=== PATIENT | female | born 1935 | race Caucasian/White ===

== ENCOUNTER 2016-05-01 10:37 | Inpatient (IN) | payer OTHER, MEDICARE ==
[~2016-05-01] VITALS: Ht 162.6 cm; Wt 68.9 kg
[2016-05-01] MEDS ORDERED: COUMADIN5 M2 PO (11:57)
[2016-05-01] MEDS ORDERED: ASPIRIN81 M4 PO (11:57)
--- NOTE | 2016-05-01 11:58 | ED CARDIAC/CP/PALPITATIONS ---
History of Present Illness General Chief Complaint: Lower Extremity Problems Stated Complaint: "MY LEGS ARE ALL SWOLLEN" Source: patient, family, old records Exam Limitations: no limitations Vital Signs & Intake/Output Vital Signs & Intake/Output Vital Signs Date Time Temp Pulse Resp B/P Pulse O2 O2 Flow FiO2 Ox Delivery Rate 05/01 1334 96.5 82 18 160/83 93 Room Air 05/01 1300 96.5 82 18 160/83 05/01 1256 96.9 103 20 162/90 05/01 1125 96.9 103 20 162/90 95 Room Air Room Air Allergies Coded Allergies: magnesium (From CARDIA) (Severe, COUGHING CHOKING 05/01/16) olmesartan (From BENICAR) (Severe, THROAT SWELLING 05/01/16) potassium chloride (From CARDIA) (Severe, COUGHING CHOKING 05/01/16) sodium chloride (From CARDIA) (Severe, COUGHING CHOKING 05/01/16) Penicillins (Intermediate, "SEA SICK FEELING". 05/01/16) amlodipine (Intermediate, SOME SWELLING 05/01/16) digoxin (Intermediate, LIP SWELLING 05/01/16) nebivolol (From BYSTOLIC) (Intermediate, SWELLING, WEAKNESS 05/01/16) spironolactone (Intermediate, DIARRHEA, NO URINE OUTPUT 05/01/16) Reconcile Medications Aspirin (Aspirin*) 81 MG TAB.CHEW 1 TAB PO DAILY HEART HEALTH (Reported) Warfarin Sodium (Coumadin) 5 MG TABLET 1 TAB PO 1700 BLOOD THINNER (Reported) Triage Note: PT TO ED WITH C/O BILATERL LEG SWELLING "I'VE BEEN ON DIURETICS 6 DIFFERENT ONES THEY MADE ME SICK". HX HTN, BLOOD CLOT IN LEFT FOOT, STROKE 2009. Triage Nurses Notes Reviewed? yes Onset: Abrupt Duration: day(s):, constant, continues in ED Timing: recent history Radiation: no radiation HPI: 80-year-old female comes into emergency room with complaints of increased weakness and fatigue and swelling in her lower legs. Patient reports that she has a history of A. fib been discontinued her diltiazem exam as well as her digoxin. Denies any syncopal episodes. Denies any fever or chills. Patient reports that she's had this dry cough. Denies any vomiting. Denies any other associated symptoms. (KACI BAKER) Past History Travel History Traveled to [place] past 21 day No Medical History Any Pertinent Medical History? 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 No (KACI BAKER) Review of Systems Review of Systems Constitutional: Reports: no symptoms. EENTM: Reports: no symptoms. Respiratory: Reports: no symptoms. Cardiovascular: Reports: see HPI. GI: Reports: no symptoms. Genitourinary: Reports: no symptoms. Musculoskeletal: Reports: see HPI. Skin: Reports: no symptoms. Neurological/Psychological: Reports: no symptoms. Hematologic/Endocrine: Reports: no symptoms. Immunologic/Allergic: Reports: no symptoms. All Other Systems: Reviewed and Negative (KACI BAKER) Physical Exam Physical Exam General Appearance: well developed/nourished, no apparent distress, alert, awake Head: atraumatic, normal appearance Eyes: Bilateral: normal appearance, EOMI. Ears, Nose, Throat: normal pharynx, normal ENT inspection, hearing grossly normal Neck: normal inspection, full range of motion Respiratory: normal breath sounds, no respiratory distress Cardiovascular: tachycardia, irregularly irregular Back: normal inspection Extremities: pedal edema, swelling, tenderness Neurologic/Psych: awake, alert, oriented x 3, normal mood/affect Skin: intact, normal color Core Measures ACS in differential dx? No Severe Sepsis Present: No Septic Shock Present: No (KACI BAKER) Progress Differential Diagnosis: AMI, aortic dissection, atrial fibrillation, cholecystitis, CHF/pulm edema, hyperkalemia, hyperthyroid, hyperventilation, intracranial hemorrhage, musculoskeletal pain, myocarditis, pancreatitis, pericarditis, pneumothorax, pulmonary embolism, PUD/GERD, PVCs/PACs, respiratory failure, rib fracture, sepsis, unstable angina, V-fib/V-Tach, WPW syndrome Plan of Care: Orders Procedure Date/time Status Heart Healthy Diet 05/01 L Complete Regular Diet 05/01 D Active Admit to inpatient 05/01 1406 Active Add-on Test (ER Only) 05/01 1404 Active PROTHROMBIN TIME 05/01 1356 Active Patient Data 05/01 1336 Active Telemetry/Life Skills Instructor 05/01 1156 Active TROPONIN LEVEL 05/01 1156 Complete COMPREHENSIVE METABOLIC PANEL 05/01 1156 Complete CBC WITHOUT DIFFERENTIAL 05/01 1156 Complete B-TYPE NATRIURETIC PEP (BNP) 05/01 1156 Complete EKG 05/01 1156 Active Laboratory Tests 05/01/16 1155: Anion Gap 7, Estimated GFR > 60, BUN/Creatinine Ratio 21.4, Glucose 111 H, Calcium 8.9, Total Bilirubin 1.2, AST 34, ALT 43, Alkaline Phosphatase 94, Troponin I 0.02, Uhg-P-Yodeiungytu Pept 3260 H, Total Protein 6.3, Albumin 3.8, Globulin 2.5, Albumin/Globulin Ratio 1.5, CBC w Diff NO MAN DIFF REQ, RBC 4.61, MCV 89.7, MCH 29.6, RDW 14.8 H, MPV 6.7 L, Gran % 67.4, Lymphocytes % 20.5, Monocytes % 11.4 H, Eosinophils % 0.3, Basophils % 0.4, Absolute Granulocytes 4.8, Absolute Lymphocytes 1.5, Absolute Monocytes 0.8 H, Absolute Eosinophils 0 , Absolute Basophils 0, PUBS MCHC 33.0 Diagnostic Imaging: Viewed by Me: Radiology Read. Discussed w/RAD: Radiology Read. Radiology Impression: SERVICE DATE: 05/01/16 EXAM TYPE: RAD - XRY- PORTABLE CHEST XRAY EXAMINATION: XR PORTABLE CHEST CLINICAL INFORMATION: Shortness of breath and increasing leg swelling. Rule out CHF. COMPARISON: None TECHNIQUE: Portable AP semierect view of the chest was obtained. FINDINGS: The cardiomediastinal silhouette is borderline normal in size. Calcification of the aortic arch and descending aorta is seen. Low lung volumes are present with bibasilar opacities and associated small effusions. Slight thickening of the central airways is seen. No evidence of pulmonary edema or significant vascular congestion. No pneumothorax. Bony structures are unremarkable. Right axillary paty are in place, suggesting prior lymph node resection. IMPRESSION: Bilateral small pleural effusions with associated consolidation, suspicious for pneumonia versus atelectasis. Initial ED EKG: rate, AFIB (KACI BAKER) Comments: 05/01/2016 2:06:25 PM patient's case discussed with Dr. Helm. (DARSHAN REYNA,POONAM Anguiano) Departure Departure Disposition: STILL A PATIENT Condition: Stable Clinical Impression Primary Impression: Congestive heart failure Secondary Impressions: Hyponatremia, Rapid atrial fibrillation Referrals: PARKER REYNA,WILLY Parr JR (PCP/Family) Departure Forms: Customer Survey General Discharge Information Admission Note Spoke With: ZA HELM MD Documentation of Exam: Documentation of any treatments & extenuating circumstances including Concerns Regarding Discharge (functional status, medication knowledge or non-compliance, living conditions, etc.) that warrant an admission rather than observation: Patient's heart rate was in the 140s on the monitor initially. Patient will require rate controlling medications. Diuresis for new onset CHF. Echocardiogram. Cardiac consultation. Patient would do poorly as outpatient patient. Repeat lab work. Sodium management. (KACI BAKER) PA/PERL SOFTWARE ENGINEER Co-Sign Statement Statement: ED Attending supervision documentation- [x] I saw and evaluated the patient. I have also reviewed all the pertinent lab results and diagnostic results. I agree with the findings and the plan of care as documented in the PA's/PERL SOFTWARE ENGINEER's documentation. [] I have reviewed the ED Record and agree with the PA's/PERL SOFTWARE ENGINEER's documentation. [] Additions or exceptions (if any) to the PAs/PERL SOFTWARE ENGINEER's note and plan are summarized below: [] (DARSHAN REYNA,POONAM Anguiano) Critical Care Note Critical Care Note Critical Care Time: 30-74 min (35) (KACI BAKER)
[2016-05-01 12:12] LABS: ABSOLUTE BASOPHIL COUNT 0 /CUMM (0.0-0.2); ABSOLUTE EOSINOPHIL COUNT 0 /CUMM (0.0-0.7); ABSOLUTE GRANULOCYTE CT 4.8 /CUMM (1.4-6.5); ABSOLUTE LYMPH COUNT 1.5 /CUMM (1.2-3.4); ABSOLUTE MONOCYTE COUNT 0.8 /CUMM (0.10-0.60); BASOPHIL % 0.4 % (0.0-2.0); EOSINOPHIL % 0.3 % (0-5); GRANULOCYTE % 67.4 % (42.2-75.2); HEMATOCRIT 41.3 % (37-47); MEAN CORPUSCULAR HGB 29.6 PG (27.0-31.0); MEAN CORPUSCULAR VOLUME 89.7 FL (81.0-99.0); MEAN PLATELET VOLUME 6.7 FL (7.4-10.4); PLATELET COUNT 245 /CUMM (130-400); RBC DISTRIBUTION WIDTH 14.8 % (11.5-14.5); RED BLOOD CELL CT 4.61 /CUMM (4.20-5.40); WHITE BLOOD CELL COUNT 7.2 /CUMM (4.8-10.8)
--- NOTE | 2016-05-01 12:56 | RADIOLOGY REPORT ---
EXAMINATION: XR PORTABLE CHEST CLINICAL INFORMATION: Shortness of breath and increasing leg swelling. Rule out CHF. COMPARISON: None TECHNIQUE: Portable AP semierect view of the chest was obtained. FINDINGS: The cardiomediastinal silhouette is borderline normal in size. Calcification of the aortic arch and descending aorta is seen. Low lung volumes are present with bibasilar opacities and associated small effusions. Slight thickening of the central airways is seen. No evidence of pulmonary edema or significant vascular congestion. No pneumothorax. Bony structures are unremarkable. Right axillary paty are in place, suggesting prior lymph node resection. IMPRESSION: Bilateral small pleural effusions with associated consolidation, suspicious for pneumonia versus atelectasis.
--- NOTE | 2016-05-01 13:52 | History & Physical ---
VASU ESCOBAR 05/01/16 1352: General Information and HPI MD Statement: I have seen and personally examined VALERIO IVY and documented this H&P. The patient is a 80 year old F who presented with a patient stated chief complaint of lateral lower extremity swelling Source of Information: patient, family Exam Limitations: no limitations History of Present Illness: 80-year-old woman with past medical history significant for breast cancer diagnosed 2008 status post lumpectomy, chemotherapy, radiation, stroke in 2009 without any neurological deficits, A. fib on Coumadin here for evaluation of bilateral lower extremity swelling of the past 1 week. Patient states she was in her usual health 2 weeks ago which was independent with all of her daily activities a week ago. She was initially started on Procardia 120 mg for the pressure control as well as heart rate, she started experiencing worsening cough. When she reported that to her LONG WINDER TENDER she was switch her to digoxin which she states made her severely light-sensitive as well as off -balance and her digoxin was stopped by the feed mill tender. She was then started on the Bystolic 2 weeks ago. 3 days after starting the Bystolic she started noticing the swelling which was gradually progressive up to her thighs she has never had similar symptoms before in the past and denies being on Lasix. Has also been more sleepy and lethargic. Denies chest pain, palpitations, shortness of breath, orthopnea, fever, chills, sick contacts. She reports having major issues with spironolactone and amlodipine causes her some swelling Remeron causes her throat swelling. She sees her feed mill tender in [place] and saw him last time in March and her last echo was done about a year ago which according to her was normal. Allergies/Medications Allergies: Coded Allergies: magnesium (From CARDIA) (Severe, COUGHING CHOKING 05/01/16) olmesartan (From BENICAR) (Severe, THROAT SWELLING 05/01/16) potassium chloride (From CARDIA) (Severe, COUGHING CHOKING 05/01/16) sodium chloride (From CARDIA) (Severe, COUGHING CHOKING 05/01/16) Penicillins (Intermediate, "SEA SICK FEELING". 05/01/16) amlodipine (Intermediate, SOME SWELLING 05/01/16) digoxin (Intermediate, LIP SWELLING 05/01/16) nebivolol (From [facility]) (Intermediate, SWELLING, WEAKNESS 05/01/16) spironolactone (Intermediate, DIARRHEA, NO URINE OUTPUT 05/01/16) Home Med list Aspirin (Aspirin*) 81 MG TAB.CHEW 1 TAB PO DAILY HEART HEALTH (Reported) Warfarin Sodium (Coumadin) 5 MG TABLET 1 TAB PO 1700 BLOOD THINNER (Reported) Compliance With Home Meds: GOOD Past History Travel History Traveled to [place] past 21 day No Medical History Neurological: CVA EENT: NONE Cardiovascular: AFIB, hypertension Respiratory: NONE Gastrointestinal: NONE Hepatic: NONE Renal: NONE Musculoskeletal: NONE Psychiatric: NONE Endocrine: NONE Blood Disorders: LOW SODIUM, left leg dvt Cancer(s): breast cancer, 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 Home Who Do You Live With? spouse, child Services at Home: None Primary Language: Czech Smoking Status: Never Smoked ETOH Use: denies use Illicit Drug Use: denies illicit drug use Functional Ability ADLs Independent: dressing, eating, toileting, bathing. Ambulation: independent IADLs Independent: shopping, housework, finances, food prep, telephone, transportation , medication admin. Review of Systems Review of Systems Constitutional: Denies: chills, diaphoresis, fever, malaise, weakness, unexplained weight loss. Cardiovascular: Reports: peripheral edema. Denies: chest pain, edema, orthopena, palpitations, syncope. Respiratory: Denies: no symptoms, see HPI, cough, hemoptysis, orthopnea, short of breath, sputum production, stridor, wheezing. GI: Denies: abdominal pain, bloating, constipation, diarrhea, distention, bowel incontinence, melena, nausea, bloody stool, changes in stool, vomiting, steatorrhea. Genitourinary: Denies: discharge, dysuria, frequency, hematuria, hesitation, nocturia, pain, urgency. Exam & Diagnostic Data Last 24 Hrs of Vital Signs/I&O Vital Signs Date Time Temp Pulse Resp B/P Pulse O2 O2 Flow FiO2 Ox Delivery Rate 05/01 1612 99 Nasal 1.0L Cannula 05/01 1612 95 Nasal 1.0L Cannula 05/01 1542 Nasal 2.0L Cannula 05/01 1541 97.2 73 18 135/67 92 Room Air 05/01 1334 96.5 82 18 160/83 93 Room Air 05/01 1300 96.5 82 18 160/83 05/01 1256 96.9 103 20 162/90 05/01 1125 96.9 103 20 162 95 Room Air Room Air Intake & Output 05/01 1600 05/01 0800 05/01 0000 Intake Total Output Total Balance Patient 140 lb Weight Physical Exam General Appearance Alert, Oriented X3, Cooperative, No Acute Distress Skin No Rashes HEENT Atraumatic, PERRLA, EOMI, Mucous Membr. moist/pink, b/l periorbital swelling Neck Supple, No JVD, +2 Carotid Pulse wo Bruit Lymphatic Cervical nl Cardiovascular Normal S1, Normal S2, irregularly regular Lungs Clear to Auscultation, Normal Air Movement Abdomen Normal Bowel Sounds, Soft, No Tenderness Neurological Normal Speech, Strength at 5/5 X4 Ext, Normal Tone, Sensation Intact, Cranial Nerves 3-12 NL Extremities b/l non pitting edema upto thighs Last 24 Hrs of Labs/Cosmo: Laboratory Tests 05/01/16 1356: PT Cancelled, INR Cancelled 05/01/16 1156: PT 49.9 *H, INR 4.83 *H 05/01/16 1155: Anion Gap 7, Estimated GFR > 60, BUN/Creatinine Ratio 21.4, Glucose 111 H, Calcium 8.9, Total Bilirubin 1.2, AST 34, ALT 43, Alkaline Phosphatase 94, Troponin I 0.02, Cnc-U-Raipvknvekn Pept 3260 H, Total Protein 6.3, Albumin 3.8, Globulin 2.5, Albumin/Globulin Ratio 1.5, CBC w Diff NO MAN DIFF REQ, RBC 4.61, MCV 89.7, MCH 29.6, RDW 14.8 H, MPV 6.7 L, Gran % 67.4, Lymphocytes % 20.5, Monocytes % 11.4 H, Eosinophils % 0.3, Basophils % 0.4, Absolute Granulocytes 4.8, Absolute Lymphocytes 1.5, Absolute Monocytes 0.8 H, Absolute Eosinophils 0 , Absolute Basophils 0, PUBS MCHC 33.0 Diagnostic Data EKG Results afibe rat 125 Qtc 466 CXR Results IMPRESSION: Bilateral small pleural effusions with associated consolidation, suspicious for pneumonia versus atelectasis. Assessment/Plan Assessment: 80-year-old woman with past medical history significant for breast cancer diagnosed 2007 status post lumpectomy, chemotherapy, radiation, stroke in 2009 without any neurological deficits, A. fib on Coumadin here for evaluation of bilateral lower extremity swelling of the past 1 week, on admission labs pertinent for hyponatremia and elevated proBNP, supratherapeutic INR 4.83, chest x-ray showing bilateral small pleural effusion with associated consolidation. She'll be admitted to the telemetry floor. As Ranked By This Provider Problem List: 1. Swelling of lower extremity Assessment/Plan Elevated proBNP worsening lower extremity edema possible new onset CHF and she states that she's never had to be on Lasix before. 40 mg IV Lasix given, strict I's and O's Will obtain echo to rule out for motion abnormalities valvular dysfunction. Cardiology is aware of the patient She does have periorbital swelling, Bystolic causes peripheral edema in 1% of the population, fatigue in 2-5%, angioedema is seen is less than 1%. 2. Hyponatremia Assessment/Plan Patient looks euvolemic, has history of hyponatremia, ? SIADH Will get her records to see what previous levels have been 3. Afib Assessment/Plan therapeutic INR will hold Coumadin, repeat INR tomorrow 4. DVT prophylaxis Assessment/Plan Supratherapeutic INR 5. Full code status Core Measures/Miscellaneous Acute Coronary Syndrome ACS Diagnosis: No Cerebrovascular Accident CVA/TIA Diagnosis: No Congestive Heart Failure CHF Diagnosis: No Venous Thromboembolism VTE Risk Factors: Age > 40 VTE Prophylaxis Ordered Inpt: [facility]- [facility] prophylaxis d/t: LE Edema No VTE Pharm Prophylaxis d/t: Medical contraindication (supratherapeutic inr) VTE Diagnosis: No VTE Type: NONE VTE Confirmed by (Test): NONE Severe Sepsis Severe Sepsis Present: No Septic Shock Septic Shock Present: No Miscellaneous Documentation Attending Case Discussed With: ZA HELM MD Primary Care Physician: PARKER REYNA,WILLY Parr JR Patient sees these Specialists feed mill tender at [place] Level of Patient Care: Telemetry DIANA BERRIOS 05/01/16 1400: Resident Review Statement Resident Statement: agreed with audit practice intern Other Findings: Patient is 80 year old female with PMH of breast cancer in 2007 s/p lumpectomy/ chemo/radio, stroke 2009, A fib on warfarin, came with chief complain of b/l lower extremety swelling. Patient states that she has noticed worsening of b/l lower extremety swelling since past 6 days, it has increased uptill her thighs. She also reports of discomfort on ambulation, more on right leg. Patient stays that at baseline she is very active but over past few days, she has not been very mobile. Patient reports that her PCP got retired in feb 2016 and since then she followed an LONG WINDER TENDER who started her on bystolic. Patient reports that she stopped taking bystolic after three days due to worsening b/l lower extermety pain. Patient reports that she has never been on lasix. Vitals on admission Tachycardia 103, afebrile, BP 160/83, on RA CXR Bilateral small pleural effusions with associated consolidation, suspicious for pneumonia versus atelectasis. INR supra therapeutic Problem list assessment and Plan CHF with b/l lower extremety swelling Hyponatremia Atrial fibrillation Plan WIll admit patient to telemetry floor for continuous monitoring Patient got 40 IV lasix in ER and 60 PO cardizem, Will monitor for further tachycardia WIll start patient on 40 IV lasix daily, WIll obtain echocardiogram Daily weight, will monitor input/output Will request for cardiology consult service and restart patient on aspirin INTR supra therapeutic today, will hold warfarn DVT ppx supra therapeutic INR Patient is full code. ZA HELM MD 05/01/16 1826: Attending MD Review Statement Attending Statement Attending MD Statement: examined this patient, discuss w/resident/PA/SUGAR PRESSER, agreed w/resident/PA/SUGAR PRESSER, reviewed EMR data (avail) Attending Assessment/Plan: 80F PMH HTN, CAD, atrial fibrillation on Coumadin, chronic LE swelling, history of DVT admitted for palpitations and shortness of breath in the setting of rapid atrial fibrillation and acute CHF. Patient has not been taking her Digoxin or rate control medications for a few months as she reports it increased her leg swelling. Rate 140's and irregular in ED with bibasilar crackles and 1+ bilateral LE edema. No chest pain. Plan - Admit to telemetry - Start Cardizem - Start Lasix 40mg IV daily - I/O, daily weights - Obtain echocardiogram - Start ASA and statin - cardiology consult - COntinue Coumadin - DVT PPx
[2016-05-01 14:33] LABS: PT 49.9 SEC (9.4-12.5)
--- NOTE | 2016-05-01 14:46 | Admission Certification ---
Admission Certification Certification Statement - As attending physician, I certify that at the time of - admission, based on clinical presentation, severity of - symptoms, need for further diagnostic testing and - therapeutic interventions, and risk of adverse outcomes - without in-hospital treatment, in my clinical assessment, - this patient requires an acute hospital stay for a minimum - of two nights or longer. I have also considered psychsocial - factors such as support system, advanced age, financial - issues, cognitive issues, and failed out-patient treatments, - past re-admission history, safety of patient, and lack of - compliance as applicable. Specific rationale supporting this admission is: Rapid atrial fibrillation with evidence of acute CHF
--- NOTE | 2016-05-01 16:38 | Cons- Cardiology ---
General Information and HPI Consulting Request Date of Consult: 05/01/16 Requested By: ZA HELM MD Reason for Consult: New onset congestive heart failure in a patient with chronic atrial fibrillation. Source of Information: patient, family Exam Limitations: no limitations History of Present Illness: The patient is a an 80-year-old female with chronic atrial fibrillation. She states she's had this for many years. She's been on various medications for rate control including diltiazem and various beta blockers and has had reactions to many of them. Recently he was started on Bysystolic but didn't tolerate this medication either. She has been on warfarin chronically, which she does tolerate well. Over the past one week she has noted increasing leg swelling and her daughter brought her in here because of that. She denies specifically any chest pain or shortness of breath, palpitations, dizziness, syncope. She states she has had echocardiograms in the past, most recently one year ago. She's never been hospitalized for congestive heart failure. In the emergency department she received IV Lasix and IV and by mouth Cardizem as her rate was somewhat fast initially. She has tolerated this so far. Allergies/Medications Allergies: Coded Allergies: magnesium (From CARDIA) (Severe, COUGHING CHOKING 05/01/16) olmesartan (From BENICAR) (Severe, THROAT SWELLING 05/01/16) potassium chloride (From CARDIA) (Severe, COUGHING CHOKING 05/01/16) sodium chloride (From CARDIA) (Severe, COUGHING CHOKING 05/01/16) Penicillins (Intermediate, "SEA SICK FEELING". 05/01/16) amlodipine (Intermediate, SOME SWELLING 05/01/16) digoxin (Intermediate, LIP SWELLING 05/01/16) nebivolol (From BYSTOLIC) (Intermediate, SWELLING, WEAKNESS 05/01/16) spironolactone (Intermediate, DIARRHEA, NO URINE OUTPUT 05/01/16) Home Med List: Aspirin (Aspirin*) 81 MG TAB.CHEW 1 TAB PO DAILY HEART HEALTH (Reported) Warfarin Sodium (Coumadin) 5 MG TABLET 1 TAB PO 1700 BLOOD THINNER (Reported) Current Medications: Current Medications Sig/Telma Start time Last Medication Dose Route Stop Time Status Admin Acetaminophen 650 MG Q8P PRN 05/01 1515 AC PO Aspirin 81 MG DAILY 05/02 1000 AC PO Diltiazem HCl 0 .STK-MED ONE 05/01 1247 DC .ROUTE Diltiazem HCl 10 MG ONCE ONE 05/01 1245 DC 05/01 IV PUSH 05/01 1246 1256 Diltiazem HCl 60 MG ONCE ONE 05/01 1245 DC 05/01 PO 05/01 1246 1300 Enoxaparin Sodium 40 MG DAILY 05/02 1000 CAN SC Furosemide 40 MG DAILY 05/02 1000 AC IV Furosemide 0 .STK-MED ONE 05/01 1407 DC IV Furosemide 40 MG ONCE ONE 05/01 1330 DC 05/01 IV 05/01 1331 1408 Review of Systems Review of Systems: She has no other complaints in the review of systems. 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 Home Smoking Status: Never Smoked ETOH Use: denies use Illicit Drug Use: denies illicit drug use Exam & Diagnostic Data Vital Signs and I&O Vital Signs Date Time Temp Pulse Resp B/P Pulse O2 O2 Flow FiO2 Ox Delivery Rate 05/01 1640 97.3 68 20 118/72 95 Nasal 2.0L Cannula 05/01 1612 99 Nasal 1.0L Cannula 05/01 1612 95 Nasal 1.0L Cannula 05/01 1542 Nasal 2.0L Cannula 05/01 1541 97.2 73 18 135/67 92 Room Air 05/01 1334 96.5 82 18 160/83 93 Room Air 05/01 1300 96.5 82 18 160/83 05/01 1256 96.9 103 20 162/90 05/01 1125 96.9 103 20 162/90 95 Room Air Room Air Intake & Output 05/01 1600 05/01 0800 05/01 0000 04/30 1600 04/30 0800 04/30 0000 Intake Total Output Total Balance Patient 140 lb Weight Physical Exam: On physical examination she is a pleasant elderly female in no acute distress HEENT exam is normal Neck veins are not distended Carotids are normal Chest is clear Cardiac exam reveals irregular rhythm with no murmurs Abdomen is benign Extremities reveal 2-3+ edema of the lower legs and ankles and feet. Labs/Cosmo Results: Laboratory Tests 05/02 05/02 05/01 1010 0730 1356 Chemistry Sodium (137 - 145 mmol/L) 128 L Potassium (3.5 - 5.1 mmol/L) 4.2 Chloride (98 - 107 mmol/L) 93 L Carbon Dioxide (22 - 30 mmol/L) 28 Anion Gap (5 - 16) 7 BUN (7 - 17 mg/dL) 14 Creatinine (0.5 - 1.0 mg/dL) 0.7 Estimated GFR (>60 ml/min) > 60 BUN/Creatinine Ratio (7 - 25 %) 20.0 Glucose (65 - 99 mg/dL) 80 Calcium (8.4 - 10.2 mg/dL) 8.6 Total Bilirubin (0.2 - 1.3 mg/dL) 1.0 AST (14 - 36 U/L) 29 ALT (9 - 52 U/L) 39 Alkaline Phosphatase (<127 U/L) 80 Total Protein (6.3 - 8.2 g/dL) 5.7 L Albumin (3.5 - 5.0 g/dL) 3.3 L Globulin (1.9 - 4.2 gm/dL) 2.4 Albumin/Globulin Ratio (1.1 - 2.2 %) 1.4 Triglycerides (<150 mg/dL) 47 Cholesterol (<200 MG/DL) 159 LDL Cholesterol, Calc (65 - 129 mg/dL) 75 HDL Cholesterol (40 - 60 mg/dL) 75 H Cholesterol/HDL Ratio (0.00 - 4.23 %) 2 Coagulation PT Pending Cancelled INR Pending Cancelled Hematology CBC w Diff NO MAN DIFF REQ WBC (4.8 - 10.8 /CUMM) 5.8 RBC (4.20 - 5.40 /CUMM) 4.33 Hgb (12.0 - 16.0 G/DL) 13.0 Hct (37 - 47 %) 39.0 MCV (81.0 - 99.0 FL) 90.1 MCH (27.0 - 31.0 PG) 29.9 RDW (11.5 - 14.5 %) 14.4 Plt Count (130 - 400 /CUMM) 229 MPV (7.4 - 10.4 FL) 7.3 L Gran % (42.2 - 75.2 %) 51.1 Lymphocytes % (20.5 - 51.1 %) 37.1 Monocytes % (1.7 - 9.3 %) 11.1 H Eosinophils % (0 - 5 %) 0.5 Basophils % (0.0 - 2.0 %) 0.2 Absolute Granulocytes (1.4 - 6.5 /CUMM) 3.0 Absolute Lymphocytes (1.2 - 3.4 /CUMM) 2.2 Absolute Monocytes (0.10 - 0.60 /CUMM) 0.6 Absolute Eosinophils (0.0 - 0.7 /CUMM) 0 Absolute Basophils (0.0 - 0.2 /CUMM) 0 PUBS MCHC (33.0 - 37.0 G/DL) 33.2 05/01 05/01 1156 1155 Chemistry Sodium (137 - 145 mmol/L) 125 L Potassium (3.5 - 5.1 mmol/L) 4.3 Chloride (98 - 107 mmol/L) 89 L Carbon Dioxide (22 - 30 mmol/L) 29 Anion Gap (5 - 16) 7 BUN (7 - 17 mg/dL) 15 Creatinine (0.5 - 1.0 mg/dL) 0.7 Estimated GFR (>60 ml/min) > 60 BUN/Creatinine Ratio (7 - 25 %) 21.4 Glucose (65 - 99 mg/dL) 111 H Calcium (8.4 - 10.2 mg/dL) 8.9 Total Bilirubin (0.2 - 1.3 mg/dL) 1.2 AST (14 - 36 U/L) 34 ALT (9 - 52 U/L) 43 Alkaline Phosphatase (<127 U/L) 94 Troponin I (< 0.11 ng/ml) 0.02 Rfs-N-Cwzextscjae Pept (<125 pg/mL) 3260 H Total Protein (6.3 - 8.2 g/dL) 6.3 Albumin (3.5 - 5.0 g/dL) 3.8 Globulin (1.9 - 4.2 gm/dL) 2.5 Albumin/Globulin Ratio (1.1 - 2.2 %) 1.5 Coagulation PT (9.4 - 12.5 SEC) 49.9 *H INR (0.90 - 1.19) 4.83 *H Hematology CBC w Diff NO MAN DIFF REQ WBC (4.8 - 10.8 /CUMM) 7.2 RBC (4.20 - 5.40 /CUMM) 4.61 Hgb (12.0 - 16.0 G/DL) 13.6 Hct (37 - 47 %) 41.3 MCV (81.0 - 99.0 FL) 89.7 MCH (27.0 - 31.0 PG) 29.6 RDW (11.5 - 14.5 %) 14.8 H Plt Count (130 - 400 /CUMM) 245 MPV (7.4 - 10.4 FL) 6.7 L Gran % (42.2 - 75.2 %) 67.4 Lymphocytes % (20.5 - 51.1 %) 20.5 Monocytes % (1.7 - 9.3 %) 11.4 H Eosinophils % (0 - 5 %) 0.3 Basophils % (0.0 - 2.0 %) 0.4 Absolute Granulocytes (1.4 - 6.5 /CUMM) 4.8 Absolute Lymphocytes (1.2 - 3.4 /CUMM) 1.5 Absolute Monocytes (0.10 - 0.60 /CUMM) 0.8 H Absolute Eosinophils (0.0 - 0.7 /CUMM) 0 Absolute Basophils (0.0 - 0.2 /CUMM) 0 PUBS MCHC (33.0 - 37.0 G/DL) 33.0 Diagnostic Data EKG Results The EKG shows atrial fibrillation at a rate of 125. There is left axis deviation, poor R-wave progression and nonspecific T-wave changes. There were no old EKGs for comparison. CXR Results PATIENT: VALERIO IVY PRESENT AGE: 80 PATIENT ACCOUNT NO: [id number] : 35 LOCATION: [facility] ORDERING PHYSICIAN: KACI RENEE SERVICE DATE: 05/01/16654 EXAM TYPE: RAD - XRY-PORTABLE CHEST XRAY EXAMINATION: XR PORTABLE CHEST CLINICAL INFORMATION: Shortness of breath and increasing leg swelling. Rule out CHF. COMPARISON: None TECHNIQUE: Portable AP semierect view of the chest was obtained. FINDINGS: The cardiomediastinal silhouette is borderline normal in size. Calcification of the aortic arch and descending aorta is seen. Low lung volumes are present with bibasilar opacities and associated small effusions. Slight thickening of the central airways is seen. No evidence of pulmonary edema or significant vascular congestion. No pneumothorax. Bony structures are unremarkable. Right axillary paty are in place, suggesting prior lymph node resection. IMPRESSION: Bilateral small pleural effusions with associated consolidation, suspicious for pneumonia versus atelectasis. DICTATED BY: CHELI GREWAL MD DATE/TIME DICTATED:05/01/161250 [employer] SALES:[employer] DATE/TIME TRANSCRIBED:05/01/161250 CONFIDENTIAL, DO NOT COPY WITHOUT APPROPRIATE AUTHORIZATION. <Electronically signed in Other Vendor System> SIGNED BY: CHELI GREWAL MD [id number] Assessment/Plan Assessment/Plan The patient is an 80-year-old female with chronic atrial fibrillation. She has developed peripheral edema over the past week or so. She's been off all rate limiting medications because of intolerance. She has never been on a diuretic. She has pleural effusions on chest x-ray and significant peripheral edema. Her heart rate is somewhat elevated but is improved after IV and by mouth Cardizem. She has been started on diuretics. I believe her congestive heart failure has been precipitated by rapid atrial fibrillation, but we need to know more about the status of her left ventricle and valves. An echocardiogram will be done as soon as possible tomorrow and will be very helpful. In the meantime we will keep her on a regimen of IV diuretics and oral Cardizem for rate control, which hopefully she will tolerate. Copies To: ERNA DAILY DO Acknowledgment - Thank you for your consult request.
[2016-05-01 16:40] VITALS: BP 118/72
[2016-05-01 23:00] VITALS: BP 124/78
[2016-05-02 07:30] VITALS: BP 148/80
--- NOTE | 2016-05-02 08:19 | PN- Housestaff ---
VASU ESCOBAR 05/02/16 0818: Subjective Follow-up For: lower extremity swelling Tele-Events Since Last Visit: Ruthann piper [id number] Subjective: Seen and examined patient, offers no complaints. Said she did have trouble sleeping yesterday however as was more likely due to a new environment Review of Systems Constitutional: Denies: chills, diaphoresis, fever, malaise, weakness, unexplained weight loss. Cardiovascular: Denies: chest pain, edema, orthopena, palpitations, peripheral edema, syncope. Respiratory: Denies: cough, hemoptysis, orthopnea, short of breath, sputum production, stridor, wheezing. Objective Last 24 Hrs of Vital Signs/I&O Vital Signs Date Time Temp Pulse Resp B/P Pulse O2 O2 Flow FiO2 Ox Delivery Rate 05/02 0000 Room Air 05/01 2300 97.2 98 18 124/78 94 Room Air 05/01 1640 97.3 68 20 118/72 95 Nasal 2.0L Cannula 05/01 1612 99 Nasal 1.0L Cannula 05/01 1612 95 Nasal 1.0L Cannula 05/01 1542 Nasal 2.0L Cannula 05/01 1541 97.2 73 18 135/67 92 Room Air 05/01 1334 96.5 82 18 160/83 93 Room Air 05/01 1300 96.5 82 18 160/83 05/01 1256 96.9 103 20 162/90 05/01 1125 96.9 103 20 162/90 95 Room Air Room Air Intake & Output 05/02 1600 05/02 0800 05/02 0000 Intake Total 250 250 Output Total 1100 1850 Balance -850 -1600 Intake, IV 0 0 Intake, Oral 250 250 Number 0 0 Bowel Movements Output, Urine 1100 1850 Patient 155 lb 132 lb Weight Physical Exam General Appearance: Alert, Oriented X3, Cooperative, No Acute Distress Cardiovascular: Normal S1, Normal S2, irregular Lungs: Clear to Auscultation, Normal Air Movement Abdomen: Normal Bowel Sounds, Soft, No Tenderness Current Medications: Current Medications Sig/Telma Start time Last Medication Dose Route Stop Time Status Admin Acetaminophen 650 MG Q8P PRN 05/01 1515 AC PO Aspirin 81 MG DAILY 05/02 1000 AC PO Diltiazem HCl 0 .STK-MED ONE 05/01 1247 DC .ROUTE Diltiazem HCl 10 MG ONCE ONE 05/01 1245 DC 05/01 IV PUSH 05/01 1246 1256 Diltiazem HCl 60 MG ONCE ONE 05/01 1245 DC 05/01 PO 05/01 1246 1300 Enoxaparin Sodium 40 MG DAILY 05/02 1000 CAN SC Furosemide 40 MG DAILY 05/02 1000 AC IV Furosemide 0 .STK-MED ONE 05/01 1407 DC IV Furosemide 40 MG ONCE ONE 05/01 1330 DC 05/01 IV 05/01 1331 1408 Last 24 Hrs of Lab/Cosmo Results Last 24 Hrs of Labs/Mics: Laboratory Tests 05/02/16 0730: Sodium Pending, Potassium Pending, Chloride Pending, Carbon Dioxide Pending, Anion Gap Pending, BUN Pending, Creatinine Pending, BUN/Creatinine Ratio Pending , Glucose Pending, Calcium Pending, Total Bilirubin Pending, AST Pending, ALT Pending, Alkaline Phosphatase Pending, Total Protein Pending, Albumin Pending, Globulin Pending, Albumin/Globulin Ratio Pending, Triglycerides Pending, Cholesterol Pending, LDL Cholesterol, Calc Pending, HDL Cholesterol Pending, Cholesterol/HDL Ratio Pending, CBC w Diff Pending, WBC Pending, RBC Pending, Hgb Pending, Hct Pending, MCV Pending, MCH Pending, RDW Pending, Plt Count Pending, MPV Pending, PUBS MCHC Pending 05/01/16 1356: PT Cancelled, INR Cancelled 05/01/16 1156: PT 49.9 *H, INR 4.83 *H 05/01/16 1155: Anion Gap 7, Estimated GFR > 60, BUN/Creatinine Ratio 21.4, Glucose 111 H, Calcium 8.9, Total Bilirubin 1.2, AST 34, ALT 43, Alkaline Phosphatase 94, Troponin I 0.02, Yly-K-Hqijjyogwti Pept 3260 H, Total Protein 6.3, Albumin 3.8, Globulin 2.5, Albumin/Globulin Ratio 1.5, CBC w Diff NO MAN DIFF REQ, RBC 4.61, MCV 89.7, MCH 29.6, RDW 14.8 H, MPV 6.7 L, Gran % 67.4, Lymphocytes % 20.5, Monocytes % 11.4 H, Eosinophils % 0.3, Basophils % 0.4, Absolute Granulocytes 4.8, Absolute Lymphocytes 1.5, Absolute Monocytes 0.8 H, Absolute Eosinophils 0 , Absolute Basophils 0, PUBS MCHC 33.0 Assessment/Plan Assessment: 80-year-old woman with past medical history significant for breast cancer diagnosed 2008 status post lumpectomy, chemotherapy, radiation, stroke in 2009 without any neurological deficits, A. fib on Coumadin here for evaluation of bilateral lower extremity swelling of the past 1 week, on admission labs pertinent for hyponatremia and elevated proBNP, supratherapeutic INR 4.83, chest x-ray showing bilateral small pleural effusion with associated consolidation. Afebrile overnight, currently -2.4 L. Significant improvement in the bilateral lower extremity swelling noted today. 1. Swelling of lower extremity Assessment/Plan Improvement noted,currently tolerating Lasix, on 40 mg IV Lasix, continue strict I's and O's echo pending Cardiology on board appreciated recommendations 2. Hyponatremia Assessment/Plan 128 today 3. Afib Assessment/Plan INR 3.34 will continue to hold coumadin 4. DVT prophylaxis Assessment/Plan Supratherapeutic INR 5. Full code status Problem List: 1. Hyponatremia 2. Afib 3. Swelling of lower extremity Pain Ratin Pain Location: na Pain Goal: Pain 4 or less Pain Plan: current regimen Tomorrow's Labs & Rationales: INR, BEP ZA HELM MD 05/02/16 1042: Attending MD Review Statement Attending Statement Attending MD Statement: examined this patient, discuss w/resident/PA/NEEDLE LOOM SETTER, agreed w/resident/PA/NEEDLE LOOM SETTER, reviewed EMR data (avail) Attending Assessment/Plan: 80F PMH HTN, CAD, atrial fibrillation on Coumadin, chronic LE swelling, history of DVT admitted for palpitations and shortness of breath in the setting of rapid atrial fibrillation and acute CHF. Patient has not been taking her Digoxin or rate control medications for a few months as she reports it increased her leg swelling. Rate 140's and irregular in ED with bibasilar crackles and 1+ bilateral LE edema. No chest pain. Saturating 92% on 2L. 1. Acute CHF 2. Rapid atrial fibrillation 3. Acute hypoxemic respiratory failure 4. Chronic lower extremity edema Plan - Continue telemetry - Start PO Cardizem 120mg ER - Continue Lasix 40mg IV daily - I/O, daily weights - Titrate down oxygen as tolerated - Obtain echocardiogram - Start ASA and statin - cardiology consult - Continue Coumadin - DVT PPx
[2016-05-02 09:10] LABS: ABSOLUTE BASOPHIL COUNT 0 /CUMM (0.0-0.2); ABSOLUTE EOSINOPHIL COUNT 0 /CUMM (0.0-0.7); ABSOLUTE LYMPH COUNT 2.2 /CUMM (1.2-3.4); ABSOLUTE MONOCYTE COUNT 0.6 /CUMM (0.10-0.60); BASOPHIL % 0.2 % (0.0-2.0); EOSINOPHIL % 0.5 % (0-5); GRANULOCYTE % 51.1 % (42.2-75.2); MEAN CORPUSCULAR HGB 29.9 PG (27.0-31.0); MEAN CORPUSCULAR HGB CONC 33.2 G/DL (33.0-37.0); MEAN CORPUSCULAR VOLUME 90.1 FL (81.0-99.0); MEAN PLATELET VOLUME 7.3 FL (7.4-10.4); PLATELET COUNT 229 /CUMM (130-400); RBC DISTRIBUTION WIDTH 14.4 % (11.5-14.5); RED BLOOD CELL CT 4.33 /CUMM (4.20-5.40); WHITE BLOOD CELL COUNT 5.8 /CUMM (4.8-10.8)
--- NOTE | 2016-05-02 10:40 | PN- Cardiology ---
Subjective Subjective: The patient is feeling better. She is diuresing well. She has no complaints of chest pain. She remains in atrial fibrillation. She did not yet get her morning dose of Cardizem and her rate is a little on the fast side at this point. Objective Vital Signs and I&Os Vital Signs Date Time Temp Pulse Resp B/P Pulse O2 O2 Flow FiO2 Ox Delivery Rate 05/02 0826 92 Nasal 2.0L Cannula 05/02 0730 97.7 85 16 148/80 92 Room Air 05/02 0000 Room Air 05/01 2300 97.2 98 18 124/78 94 Room Air 05/01 1640 97.3 68 20 118/72 95 Nasal 2.0L Cannula 05/01 1612 99 Nasal 1.0L Cannula 05/01 1612 95 Nasal 1.0L Cannula 05/01 1542 Nasal 2.0L Cannula 05/01 1541 97.2 73 18 135/67 92 Room Air 05/01 1334 96.5 82 18 160/83 93 Room Air 05/01 1300 96.5 82 18 160/83 05/01 1256 96.9 103 20 162/90 05/01 1125 96.9 103 20 162/90 95 Room Air Room Air Intake & Output 05/02 1600 05/02 0800 05/02 0000 05/01 1600 05/01 0800 05/01 0000 Intake Total 250 250 Output Total 1100 1850 Balance -850 -1600 Intake, IV 0 0 Intake, Oral 250 250 Number 0 0 Bowel Movements Output, Urine 1100 1850 Patient 155 lb 132 lb 140 lb Weight Physical Exam: She is alert and cooperative and pleasant HEENT exam is normal Chest is clear Heart reveals irregular rhythm at a moderate rate with no murmurs Extremities 1-2+ edema slightly less than yesterday Current Medications: Current Medications Sig/Telma Start time Last Medication Dose Route Stop Time Status Admin Acetaminophen 650 MG Q8P PRN 05/01 1515 AC PO Aspirin 81 MG DAILY 05/02 1000 AC 05/02 PO 1002 Diltiazem HCl 120 MG DAILY 05/02 1000 AC PO Diltiazem HCl 0 .STK-MED ONE 05/01 1247 DC .ROUTE Diltiazem HCl 10 MG ONCE ONE 05/01 1245 DC 05/01 IV PUSH 05/01 1246 1256 Diltiazem HCl 60 MG ONCE ONE 05/01 1245 DC 05/01 PO 05/01 1246 1300 Enoxaparin Sodium 40 MG DAILY 05/02 1000 CAN SC Furosemide 40 MG DAILY 05/02 1000 AC 05/02 IV 1002 Furosemide 0 .STK-MED ONE 05/01 1407 DC IV Furosemide 40 MG ONCE ONE 05/01 1330 DC 05/01 IV 05/01 1331 1408 Patient Medication 1 UNIT ONE NR 05/02 1000 AC Teaching ED 05/02 1600 Results Last 48 Hrs of Labs/Mics: Laboratory Tests 05/02/16 1010: PT Pending, INR Pending 05/02/16 0730: Anion Gap 7, Estimated GFR > 60, BUN/Creatinine Ratio 20.0, Glucose 80, Calcium 8.6, Total Bilirubin 1.0, AST 29, ALT 39, Alkaline Phosphatase 80, Total Protein 5.7 L, Albumin 3.3 L, Globulin 2.4, Albumin/Globulin Ratio 1.4, Triglycerides 47, Cholesterol 159, LDL Cholesterol, Calc 75, HDL Cholesterol 75 H, Cholesterol/HDL Ratio 2, CBC w Diff NO MAN DIFF REQ, RBC 4.33, MCV 90.1, MCH 29.9, RDW 14.4, MPV 7.3 L, Gran % 51.1, Lymphocytes % 37.1, Monocytes % 11.1 H , Eosinophils % 0.5, Basophils % 0.2, Absolute Granulocytes 3.0, Absolute Lymphocytes 2.2, Absolute Monocytes 0.6, Absolute Eosinophils 0, Absolute Basophils 0, PUBS MCHC 33.2 05/01/16 1356: PT Cancelled, INR Cancelled 05/01/16 1156: PT 49.9 *H, INR 4.83 *H 05/01/16 1155: Anion Gap 7, Estimated GFR > 60, BUN/Creatinine Ratio 21.4, Glucose 111 H, Calcium 8.9, Total Bilirubin 1.2, AST 34, ALT 43, Alkaline Phosphatase 94, Troponin I 0.02, Rkg-D-Ssqqgehngpj Pept 3260 H, Total Protein 6.3, Albumin 3.8, Globulin 2.5, Albumin/Globulin Ratio 1.5, CBC w Diff NO MAN DIFF REQ, RBC 4.61, MCV 89.7, MCH 29.6, RDW 14.8 H, MPV 6.7 L, Gran % 67.4, Lymphocytes % 20.5, Monocytes % 11.4 H, Eosinophils % 0.3, Basophils % 0.4, Absolute Granulocytes 4.8, Absolute Lymphocytes 1.5, Absolute Monocytes 0.8 H, Absolute Eosinophils 0 , Absolute Basophils 0, PUBS MCHC 33.0 Assessment/Plan Assessment/Plan The patient is improved. She is diuresing. She is tolerating Cardizem. I will review her echocardiogram and have further recommendations at that time. In the meantime we will continue the same treatment for now. Continue telemetry? Yes
[2016-05-02 11:35] LABS: PT 34.7 SEC (9.4-12.5)
[2016-05-02] MEDS ORDERED: DILTIAZEM ER120 M2 PO (13:23)
--- NOTE | 2016-05-02 13:26 | Patient Discharge Instructions ---
Discharge Instructions General Discharge Information You were seen/treated for: lower extremity swelling Special Instructions: please follow up with your primary care physician within one week of discharge please follow up with your regional controller with one week of discharge Diet Recommended Diet: Heart Healthy Acute Coronary Syndrome Inclusion Criteria At DC or during hospital stay patient has or had the following: ACS DIAGNOSIS No Discharge Core Measures Meds if any: Prescribed or Continued at Discharge Meds if any: NOT Prescribed or Continued at Discharge Congestive Heart Failure Inclusion Criteria At DC or during hospital stay patient has or had the following: CHF DIAGNOSIS No Discharge Core Measures Meds if any: Prescribed or Continued at Discharge Meds if any: NOT Prescribed or Continued at Discharge Cerebrovascular accident Inclusion Criteria At DC or during hospital stay patient has or had the following: CVA/TIA Diagnosis No Discharge Core Measures Meds if any: Prescribed or Continued at Discharge Meds if any: NOT Prescribed or Continued at Discharge Venous thromboembolism Inclusion Criteria VTE Diagnosis No VTE Type NONE VTE Confirmed by (Test) NONE Discharge Core Measures - Per Current guidelines, there needs to be overlap - treatment for the first 5 days of Warfarin therapy. - If discharged on Warfarin prior to 5 days of - overlap therapy, the patient will need to be - assessed for post discharge needs including - *Post discharge parental anticoagulation - *Warfarin and/or parental anticoagulation education - *Follow up date to check INR post discharge At least 5 days overlap therapy as Inpatient No Meds if any: Prescribed or Continued at Discharge Note: Overlap Therapy is Warfarin and Anticoagulant Meds if any: NOT Prescribed or Continued at Discharge
[2016-05-02 16:28] VITALS: BP 122/78
--- NOTE | 2016-05-02 17:26 | ECHOCARDIOGRAM REPORT ---
VALERIO IVY Age: 80 : 1935 Gender: F Exam Date: 05/02/2016 09:00 Exam Location: [place] Ht (in): 64 Wt (lb): 155 BSA: 1.80 BP: 124 / 78 Ordering Physician: DIANA BERRIOS MD Referring Physician: DIANA BERRIOS MD Technologist: Jeff Metzger [facility] Room Number: 172-1 Indications: CONGENITAL HEART DISEASE Rhythm: Atrial fibrillation Technical Quality: Good FINDINGS Left Ventricle Normal size left ventricle. Mild concentric left ventricular hypertrophy. Left ventricular ejection fraction is estimated at 50-55 %. No obvious regional wall motion abnormalities. Right Ventricle Mild right ventricular dilatation. Right Atrium Moderate right atrial dilatation. Left Atrium Mild to moderate left atrial dilatation. Mitral Valve Mild thickening/calcification of the mitral valve leaflets. Mild mitral regurgitation. Aortic Valve Focal thickening of the aortic valve cusps. No aortic stenosis. Trace aortic regurgitation. Tricuspid Valve Structurally normal tricuspid valve. Jaky-ey-ptashylg tricuspid regurgitation. Right ventricular systolic pressure estimated to be elevated at 60 mmHg. Moderate to severe pulmonary hypertension. Pulmonic Valve Pulmonic valve not well visualized, grossly normal. Mild pulmonic regurgitation. Pericardium There is a small posterior pericardial effusion with no hemodynamic compromise. Great Vessels Dilated IVC. Normal size aortic root. CONCLUSIONS Mild concentric left ventricular hypertrophy. Left ventricular ejection fraction is estimated at 50-55 %. Mild right ventricular dilatation. Moderate right atrial dilatation. Mild to moderate left atrial dilatation. Mild thickening/calcification of the mitral valve leaflets. Mild mitral regurgitation. Focal thickening of the aortic valve cusps. No aortic stenosis. Trace aortic regurgitation. Ciki-ro-quezeokz tricuspid regurgitation. Right ventricular systolic pressure estimated to be elevated at 60 mmHg. Moderate to severe pulmonary hypertension. There is a small posterior pericardial effusion with no hemodynamic compromise. Dilated IVC. Delroy Peguero M.D. (Electronically Signed) Final Date: 02 May 2016 17:25 MEASUREMENTS (Male / Female) Normal Values 2D ECHO LV Diastolic Diameter PLAX 4.2 cm 4.2 - 5.9 / 3.9 - 5.3 cm LV Systolic Diameter PLAX 2.9 cm 2.1 - 4.0 cm LV Fractional Shortening PLAX 31.0 % 25 - 46 % LV Ejection Fraction 2D Teich 59.0 % IVS Diastolic Thickness 1.1 cm LVPW Diastolic Thickness 1.2 cm LV Relative Wall Thickness 0.5 RV Internal Dim ED PLAX 3.6 cm 1.9 - 3.8 cm LVOT Diameter 1.7 cm Aortic Root Diameter 3.0 cm LA Systolic Diameter LX 3.3 cm 3.0 - 4.0 / 2.7 - 3.8 cm LA Volume 65.0 cm 18 - 58 / 22 - 52 cm Ascending Aorta Diameter 3.0 cm DOPPLER AV Peak Velocity 114.0 cm/s AV Peak Gradient 5.2 mmHg AV Mean Velocity 84.6 cm/s AV Mean Gradient 3.0 mmHg AV Velocity Time Integral 23.7 cm AI Deceleration Hardin 211.0 cm/s AI Peak Velocity 415.0 cm/s AI Pressure Half Time 576.0 ms AI Peak Gradient 68.9 mmHg LVOT Peak Velocity 72.1 cm/s LVOT Peak Gradient 2.1 mmHg LVOT Mean Velocity 43.8 cm/s LVOT Mean Gradient 1.0 mmHg LVOT Velocity Time Integral 14.1 cm LVOT Stroke Volume 32.0 cm AV Area Cont Eq vti 1.4 cm AV Area Cont Eq pk 1.4 cm MV Peak Velocity 172.0 cm/s MV Peak Gradient 11.8 mmHg MV Mean Velocity 87.4 cm/s MV Mean Gradient 4.0 mmHg Mitral E Point Velocity 169.0 cm/s Mitral A Point Velocity 46.6 cm/s Mitral E to A Ratio 3.6 MV PHT Velocity 179.0 cm/s MV Deceleration Hardin 1080.0 cm/s MV Pressure Half Time 49.7 ms MV Area PHT 4.4 cm MV Deceleration Time 155.0 ms MR Peak Velocity 428.0 cm/s MR Peak Gradient 73.3 mmHg TR Peak Velocity 356.0 cm/s TR Peak Gradient 50.7 mmHg Right Atrial Pressure 10.0 mmHg Pulmonary Artery Systolic Pressu 60.7 mmHg Right Ventricular Systolic Press 60.7 mmHg PV Peak Velocity 71.1 cm/s PV Peak Gradient 2.0 mmHg PV Mean Velocity 54.0 cm/s PV Mean Gradient 1.0 mmHg PV Velocity Time Integral 17.5 cm LV E' Lateral Velocity 12.7 cm/s Mitral E to LV E' Lateral Ratio 13.3 LV E' Septal Velocity 7.8 cm/s Mitral E to LV E' Septal Ratio 21.7
[2016-05-02 23:00] VITALS: BP 124/70
[2016-05-03 04:26] VITALS: BP 150/80
--- NOTE | 2016-05-03 07:16 | Discharge Summary ---
Visit Information Visit Dates Admission Date: 05/01/16 Discharge Date: 05/03/16 Hospital Course Course Attending Physician: ZA HELM MD Primary Care Physician: PARKER REYNA,WILLY Parr Hospital Course: 80-year-old woman with past medical history significant for breast cancer diagnosed 2007, status post lumpectomy, chemotherapy, radiation, stroke in 2009 without any neurological deficits, A. fib on Coumadin admitted to [facility] on 05/01/2016 for bilateral lower extremity swelling of one-week duration. Patient stated she was in her usual health 2 weeks prior to admission which was independent with all of her daily activities a week ago. She was initially started on Procardia 120 mg for blood pressure control as well as heart rate, after which she experienced worsening cough. She was then switched to digoxin which made her severely light-sensitive as well as off-balance and her digoxin was stopped by the slab conditioner supervisor. 2 weeks prior to admission she was started on Bystolic. 3 days after starting the Bystolic she started noticing the lower extremity swelling which was gradually progressive up to her thighs. Denied previous similar symptoms Denied chest pain, palpitations, shortness of breath, orthopnea, fever, chills, sick contacts. She also reported having adverse effects with Spironolactone and Amlodipine as well as Remeron which made her legs swell as well. On admission vitals: Afebrile, blood pressure 162/90, heart rate 103 saturating 95% on room air Labs pertinent for proBNP 3260, INR 4.83, sodium 125 She was admitted to the telemetry floor and the following issues were addressed: Swelling of lower extremity She was initially started on IV Lasix and later transitioned to by mouth Lasix 1 clinical improvement was noted. She was discharged on On 40mg of lasix daily. Was instructed to follow-up with her slab conditioner supervisor Dr. Peguero upon discharge. Echo showed EF of 50%, moderate to severe pulmonary hypertension and nonhemodynamically significant posterior pericardial effusion and IVC dilatation. Hyponatremia Improved to 131 upon discharge Atrial fibrillation On telemetry recording she remained majority of the time in rate controlled A. fib and had episodic bursts of tachycardia. On admission her INR was supratherapeutic and her Coumadin was held until it trended down after which her Coumadin was dosed according to INR. She was started on by mouth Cardizem 120mg ER. DVT prophylaxis coumadin Full code status Complications: none Allergies: Coded Allergies: magnesium (From CARDIA) (Severe, COUGHING CHOKING 05/01/16) olmesartan (From BENICAR) (Severe, THROAT SWELLING 05/01/16) potassium chloride (From CARDIA) (Severe, COUGHING CHOKING 05/01/16) sodium chloride (From CARDIA) (Severe, COUGHING CHOKING 05/01/16) Penicillins (Intermediate, "SEA SICK FEELING". 05/01/16) amlodipine (Intermediate, SOME SWELLING 05/01/16) digoxin (Intermediate, LIP SWELLING 05/01/16) nebivolol (From BYSTOLIC) (Intermediate, SWELLING, WEAKNESS 05/01/16) spironolactone (Intermediate, DIARRHEA, NO URINE OUTPUT 05/01/16) Significant Procedures: SERVICE DATE: 05/01/16-1156 EXAM TYPE: RAD - XRY-PORTABLE CHEST XRAY FINDINGS: The cardiomediastinal silhouette is borderline normal in size. Calcification of the aortic arch and descending aorta is seen. Low lung volumes are present with bibasilar opacities and associated small effusions. Slight thickening of the central airways is seen. No evidence of pulmonary edema or significant vascular congestion. No pneumothorax. Bony structures are unremarkable. Right axillary paty are in place, suggesting prior lymph node resection. IMPRESSION: Bilateral small pleural effusions with associated consolidation, suspicious for pneumonia versus atelectasis. SERVICE DATE: 05/02/16-1423 EXAM TYPE: CARD - ECHOCARDIOGRAM FINDINGS Left Ventricle Normal size left ventricle. Mild concentric left ventricular hypertrophy. Left ventricular ejection fraction is estimated at 50-55 %. No obvious regional wall motion abnormalities. Right Ventricle Mild right ventricular dilatation. Right Atrium Moderate right atrial dilatation. Left Atrium Mild to moderate left atrial dilatation. Mitral Valve Mild thickening/calcification of the mitral valve leaflets. Mild mitral regurgitation. Aortic Valve Focal thickening of the aortic valve cusps. No aortic stenosis. Trace aortic regurgitation. Tricuspid Valve Structurally normal tricuspid valve. Iroe-xa-kocuyzjx tricuspid regurgitation. Right ventricular systolic pressure estimated to be elevated at 60 mmHg. Moderate to severe pulmonary hypertension. Pulmonic Valve Pulmonic valve not well visualized, grossly normal. Mild pulmonic regurgitation. Pericardium There is a small posterior pericardial effusion with no hemodynamic compromise. Great Vessels Dilated IVC. Normal size aortic root. CONCLUSIONS Mild concentric left ventricular hypertrophy. Left ventricular ejection fraction is estimated at 50-55 %. Mild right ventricular dilatation. Moderate right atrial dilatation. Mild to moderate left atrial dilatation. Mild thickening/calcification of the mitral valve leaflets. Mild mitral regurgitation. Focal thickening of the aortic valve cusps. No aortic stenosis. Trace aortic regurgitation. [id number]-abmlgkit tricuspid regurgitation. Right ventricular systolic pressure estimated to be elevated at 60 mmHg. Moderate to severe pulmonary hypertension. There is a small posterior pericardial effusion with no hemodynamic compromise. Dilated IVC. Disposition Summary Disposition Principal Diagnosis: Lower extremity swelling Additional Diagnosis: Atrial fibrillation Hyponatremia Discharge Disposition: home or self care Discharge Instructions General Discharge Information Code Status: Full Code Patient's Diet: Regular diet Patient's Activity: As tolerated Follow-Up Instructions/Appts: follow up with primary care physician within one week of discharge. follow up with slab conditioner supervisor with one week of discharge. Medications at Discharge Discharge Medications: Continue taking these medications: Warfarin Sodium (Coumadin) 5 MG TABLET 1 Tablet ORAL 5 PM Aspirin (Aspirin*) 81 MG TAB.CHEW 1 Tablet ORAL DAILY Comments: Last Taken:05/03/16 Time:1000 Start taking the following new medications: Diltiazem Cd (Diltiazem ER) 120 MG CAP.ER.DEG 1 Tablet ORAL DAILY Days = 30 No Refills Comments: Last Taken:05/03/16 Time:1000 Furosemide (Lasix) 40 MG TABLET 1 Tablet ORAL DAILY Qty = 30 No Refills Comments: Last Taken:05/03/16 Time:1000 GIVE IV Copies To: PARKER REYNA,WILLY Parr JR; MATTY REYNA,BRENNAN Hair MD Review Statement Documenting Attending: ALICJA REYNA,ZA
--- NOTE | 2016-05-03 08:13 | PN- Housestaff ---
Subjective Follow-up For: Lower extremity swelling Tele-Events Since Last Visit: Afib HR 63-72, V. tach at 4:22 AM Subjective: Seen and examined patient, offers no complaints. She was aware of the fact she had rapid heartbeat but at that time she was sleeping. States that her lower extremity swelling has improved however is not completely resolved. Review of Systems Constitutional: Denies: chills, diaphoresis, fever, malaise, weakness, unexplained weight loss. Cardiovascular: Denies: chest pain, edema, orthopena, palpitations, peripheral edema, syncope. Respiratory: Denies: cough, hemoptysis, orthopnea, short of breath, sputum production, stridor, wheezing. Objective Last 24 Hrs of Vital Signs/I&O Vital Signs Date Time Temp Pulse Resp B/P Pulse O2 O2 Flow FiO2 Ox Delivery Rate 05/03 0426 88 150/80 05/03 0000 Room Air 05/02 2300 97.4 78 16 124/70 100 Room Air 05/02 1628 97.6 70 18 122/78 96 Room Air 05/02 0826 92 Nasal 2.0L Cannula Intake & Output 05/03 1600 05/03 0800 05/03 0000 Intake Total 0 300 Output Total 400 1400 Balance -400 -1100 Intake, IV 0 0 Intake, Oral 0 300 Number 0 0 Bowel Movements Output, Urine 400 1400 Patient 152 lb Weight Physical Exam General Appearance: Alert, Oriented X3, Cooperative, No Acute Distress Cardiovascular: Normal S1, Normal S2, irreg irreg Lungs: Clear to Auscultation, Normal Air Movement Abdomen: Soft, No Tenderness Extremities: +1 b/l edema Current Medications: Current Medications Sig/Telma Start time Last Medication Dose Route Stop Time Status Admin Acetaminophen 650 MG Q8P PRN 05/01 1515 AC PO Aspirin 81 MG DAILY 05/02 1000 AC 05/02 PO 1002 Atorvastatin Calcium 10 MG 1700 05/02 1700 AC 05/02 PO 1739 Diltiazem HCl 120 MG DAILY 05/02 1000 AC 05/02 PO 1119 Furosemide 40 MG DAILY 05/02 1000 AC 05/02 IV 1002 Patient Medication 1 UNIT 1700 05/02 1700 MA Teaching ED 05/02 1701 Patient Medication 1 UNIT ONE NR 05/02 1000 MA Teaching ED 05/02 1600 Last 24 Hrs of Lab/Cosmo Results Last 24 Hrs of Labs/Mics: Laboratory Tests 05/03/16 0700: Sodium Pending, Potassium Pending, Chloride Pending, Carbon Dioxide Pending, Anion Gap Pending, BUN Pending, Creatinine Pending, BUN/Creatinine Ratio Pending , PT Pending, INR Pending 05/02/16 1010: PT 34.7 H, INR 3.34 H Assessment/Plan Assessment: 80-year-old woman with past medical history significant for breast cancer diagnosed 2008 status post lumpectomy, chemotherapy, radiation, stroke in 2009 without any neurological deficits, A. fib on Coumadin here for evaluation of bilateral lower extremity swelling of the past 1 week, on admission labs pertinent for hyponatremia and elevated proBNP, supratherapeutic INR 4.83, chest x-ray showing bilateral small pleural effusion with associated consolidation. Afebrile overnight, currently -2.4 L. Significant improvement in the bilateral lower extremity swelling noted today. Clinically improved and stable for discharge today. 1. Swelling of lower extremity Assessment/Plan Improvement noted,currently tolerating Lasix, on 40 mg IV Lasix, continue strict I's and O's, would transition to by mouth Lasix and will dc on 40mg of lasix. Will f/up with Dr. Peguero next week. echo shows EF of 50%, moderate to severe pulmonary hypertension and nonhemodynamically significant posterior pericardial effusion and IVC dilatation. Cardiology on board appreciate recommendations 2. Hyponatremia Assessment/Plan 131 today 3. Afib Assessment/Plan INR 2.30, will dose her home dose of coumadin continue cardiazem 4. DVT prophylaxis Assessment/Plan coumadin 5. Full code status Problem List: 1. Swelling of lower extremity 2. Afib 3. Hyponatremia Pain Ratin Pain Location: Not Applicable Pain Goal: Pain 4 or less Pain Plan: Current Regimen Tomorrow's Labs & Rationales: None required
[2016-05-03 08:29] VITALS: BP 149/84
[2016-05-03] MEDS ORDERED: LASIX40 M1 PO (09:45)
--- NOTE | 2016-05-03 10:10 | PN- Cardiology ---
Subjective Subjective: The patient is feeling better. She continues to diuresis. Her heart rate is acceptable on oral diltiazem. The echocardiogram showed acceptable LV function and dilated atria. Pulmonary artery pressure was elevated. Objective Vital Signs and I&Os Vital Signs Date Time Temp Pulse Resp B/P Pulse O2 O2 Flow FiO2 Ox Delivery Rate 05/03 0829 97.8 72 16 149/84 94 Nasal Cannula 05/03 0426 88 150/80 05/03 0000 Room Air 05/02 2300 97.4 78 16 124/70 100 Room Air 05/02 1628 97.6 70 18 122/78 96 Room Air Intake & Output 05/03 1600 05/03 0800 05/03 0000 05/02 1600 05/02 0800 05/02 0000 Intake Total 0 300 430 250 250 Output Total 400 1400 2400 1100 1850 Balance -400 -1100 -1970 -850 -1600 Intake, IV 0 0 30 0 0 Intake, Oral 0 300 400 250 250 Number 0 0 0 0 Bowel Movements Output, Urine 400 1400 2400 1100 1850 Patient 152 lb 155 lb 132 lb Weight Physical Exam: She is comfortable HEENT exam is normal Chest is clear Heart reveals irregular rhythm Extremities there is still some edema 1-2+ Current Medications: Current Medications Sig/Telma Start time Last Medication Dose Route Stop Time Status Admin Acetaminophen 650 MG Q8P PRN 05/01 1515 AC PO Aspirin 81 MG DAILY 05/02 1000 AC 05/03 PO 0904 Atorvastatin Calcium 10 MG 1700 05/02 1700 AC 05/02 PO 1739 Diltiazem HCl 120 MG DAILY 05/02 1000 AC 05/03 PO 0904 Furosemide 40 MG DAILY 05/02 1000 AC 05/03 IV 0904 Patient Medication 1 UNIT 1700 05/02 1700 LA Teaching ED 05/02 1701 Patient Medication 1 UNIT ONE NR 05/02 1000 [facility] ED 05/02 1600 Warfarin Sodium 5 MG COUMADIN 1700 ONE 05/03 1700 AC PO 05/03 1701 Results Last 48 Hrs of Labs/Mics: Laboratory Tests 05/03/16 0700: Anion Gap 6, Estimated GFR > 60, BUN/Creatinine Ratio 20.0, PT 24.0 H, INR 2.30 H 05/02/16 1010: PT 34.7 H, INR 3.34 H 05/02/16 0730: Anion Gap 7, Estimated GFR > 60, BUN/Creatinine Ratio 20.0, Glucose 80, Calcium 8.6, Total Bilirubin 1.0, AST 29, ALT 39, Alkaline Phosphatase 80, Total Protein 5.7 L, Albumin 3.3 L, Globulin 2.4, Albumin/Globulin Ratio 1.4, Triglycerides 47, Cholesterol 159, LDL Cholesterol, Calc 75, HDL Cholesterol 75 H, Cholesterol/HDL Ratio 2, CBC w Diff NO MAN DIFF REQ, RBC 4.33, MCV 90.1, MCH 29.9, RDW 14.4, MPV 7.3 L, Gran % 51.1, Lymphocytes % 37.1, Monocytes % 11.1 H , Eosinophils % 0.5, Basophils % 0.2, Absolute Granulocytes 3.0, Absolute Lymphocytes 2.2, Absolute Monocytes 0.6, Absolute Eosinophils 0, Absolute Basophils 0, PUBS MCHC 33.2 05/01/16 1356: PT Cancelled, INR Cancelled 05/01/16 1156: PT 49.9 *H, INR 4.83 *H 05/01/16 1155: Anion Gap 7, Estimated GFR > 60, BUN/Creatinine Ratio 21.4, Glucose 111 H, Calcium 8.9, Total Bilirubin 1.2, AST 34, ALT 43, Alkaline Phosphatase 94, Troponin I 0.02, Wyj-U-Qahkgledxrz Pept 3260 H, Total Protein 6.3, Albumin 3.8, Globulin 2.5, Albumin/Globulin Ratio 1.5, CBC w Diff NO MAN DIFF REQ, RBC 4.61, MCV 89.7, MCH 29.6, RDW 14.8 H, MPV 6.7 L, Gran % 67.4, Lymphocytes % 20.5, Monocytes % 11.4 H, Eosinophils % 0.3, Basophils % 0.4, Absolute Granulocytes 4.8, Absolute Lymphocytes 1.5, Absolute Monocytes 0.8 H, Absolute Eosinophils 0 , Absolute Basophils 0, PUBS MCHC 33.0 Recent Imaging Studies: CONCLUSIONS Mild concentric left ventricular hypertrophy. Left ventricular ejection fraction is estimated at 50-55 %. Mild right ventricular dilatation. Moderate right atrial dilatation. Mild to moderate left atrial dilatation. Mild thickening/calcification of the mitral valve leaflets. Mild mitral regurgitation. Focal thickening of the aortic valve cusps. No aortic stenosis. Trace aortic regurgitation. Olzs-ux-oknsppqu tricuspid regurgitation. Right ventricular systolic pressure estimated to be elevated at 60 mmHg. Moderate to severe pulmonary hypertension. There is a small posterior pericardial effusion with no hemodynamic compromise. Dilated IVC. Delroy Peguero M.D. (Electronically Signed) Final Date: 02 May 2016 17:25 Assessment/Plan Assessment/Plan The patient is improved. She is diuresing. She is tolerating Cardizem. She appears comfortable enough to be discharged. We will continue her on oral Lasix at home as well as Cardizem and warfarin. She agrees to follow-up with me in the office and I will try to see her next week. Continue telemetry? No
== END 2016-05-03 13:10 | DRG 308 ==
LOC: CANRESERV → ENRESERVDT → ENRESERVTM → ERH 10:37 → ENPENDDIS 14:06 → ERHI 14:06 → 1NO 14:06
PROVIDERS: Internal Medicine; Physician Assistant Medical; ADMIT Internal Medicine
DX: I48.2 Chronic atrial fibrillation (principal); J96.01 Acute respiratory failure with hypoxia; I50.31 Acute diastolic (congestive) heart failure; E87.1 Hypo-osmolality and hyponatremia; I11.0 Hypertensive heart disease with heart failure; Z79.01 Long term (current) use of anticoagulants; Z85.3 Personal history of malignant neoplasm of breast
CPT/HCPCS: 1NP; 36415; 82436; 93005; 93010; 93306; 96374; 96375; 97116-GO; 97161-GP; 99291; J1650; J1940; J3490